=== PATIENT | female | born 1985 | race Caucasian/White ===

== ENCOUNTER 2020-09-11 10:46 | Emergency (ER) | payer OTHER ==
[2020-09-11 11:11] VITALS: BP 140/89; PULSE 89; TEMP 98.6; BMI 26.4
[2020-09-11] MEDS ORDERED: ALBUTEROL SO4 HFA INHALER IH ONE ×2 (12:04→12:22)
[2020-09-11] MEDS ORDERED: ACETAMINOPHEN 325 MG TABLET (FP) PO ONE (13:26)
[2020-09-11] MEDS ORDERED: predniSONE 20 MG TABLET (UD) PO ONE (13:26)
[2020-09-11] MEDS ORDERED: ACETAMINOPHEN 325 MG TABLET (FP) ONE (13:42)
[2020-09-11] MEDS ORDERED: predniSONE 20 MG TABLET (UD) ONE (13:42)
== END 2020-09-11 14:31 | disposition home or self-care (01) ==
LOC: JER 10:46
PROC: 3E0F7GC Introduction of Other Therapeutic Substance into Respiratory Tract, Via Natural or Artificial Opening (ICD-10-PCS; principal; 2020-09-11)
DX: Z11.52 Encounter for screening for COVID-19 (principal)
CPT/HCPCS: 71045-TC-FY; 93005; 93010; 99284-25; C9803; U0003

== ENCOUNTER 2021-01-20 08:58 | Emergency (ER) | payer OTHER ==
[2021-01-20 09:04] VITALS: BP 115/78; PULSE 76; TEMP 98; BMI 27.3
[2021-01-20 11:20] LABS: BASO % 0.7 % (0-2.0); EOS % 3.3 % (0-4.5); HEMATOCRIT 40.1 % (32.4-45.2); HEMOGLOBIN 13.2 GM/dL (10.7-15.3); LYMPH % 29.4 % (8-40); MCH 31.5 pg (25.7-33.7); MEAN CELL VOLUME 95.4 fl (80-96); MEAN PLT VOLUME 9.5 fl (7.5-11.1); MONO % 5.1 % (3.8-10.2); NEUT % 61.5 % (42.8-82.8); PLATELET COUNT 203 10^3/uL (134-434); RBC 4.21 M/mm3 (3.60-5.2); RDW 12.5 % (11.6-15.6); WHITE BLOOD COUNT 10.5 K/mm3 (4.0-10.0)
[2021-01-20 11:37] LABS: CALCIUM 8.7 mg/dL (8.5-10.1)
[2021-01-20 11:38] LABS: BLOOD UREA NITROGEN 13.6 mg/dL (7-18)
[2021-01-20 11:41] LABS: CREATININE 0.6 mg/dL (0.55-1.3)
[2021-01-20 11:46] LABS: HCG,QUALITATIVE URINE Positive
[2021-01-20 11:49] LABS: PH,URINE 5.5 (5.0-8.0); URINE APPEARANCE Clear; URINE BILIRUBIN Negative (NEGATIVE); URINE COLOR Yellow; URINE GLUCOSE (UA) Negative (NEGATIVE); URINE KETONE Trace (NEGATIVE); URINE LEUK ESTERASE Negative (NEGATIVE); URINE NITRITE Negative (NEGATIVE); URINE PROTEIN Negative (NEGATIVE); URINE UROBILINOGEN 0.2 mg/dL (0.2-1.0)
== END 2021-01-20 12:24 | disposition left against medical advice (07) ==
LOC: JER 08:58
DX: Z33.1 Pregnant state, incidental (principal)
CPT/HCPCS: 36415; 76830-TC; 80048; 81003; 84702; 84703; 85025; 87086; 87491; 87591; 99284-25

== ENCOUNTER 2021-02-03 15:57 | Emergency (ER) | payer OTHER ==
[2021-02-03 16:16] VITALS: BP 126/72; PULSE 82; TEMP 98.2; BMI 27.3
[2021-02-03] MEDS ORDERED: ONDANSETRON 4 MG/2 ML VIAL IVPUSH ONE (17:00)
[2021-02-03] MEDS ORDERED: SODIUM CHLORIDE 0.9% 500 ML INFUS.BAG IV ONE ×3 (17:00→18:23)
[2021-02-03] MEDS ORDERED: ONDANSETRON 4 MG/2 ML VIAL ONE (17:36)
[2021-02-03 18:00] LABS: BASO % 0.7 % (0-2.0); EOS % 3.1 % (0-4.5); HEMATOCRIT 39.1 % (32.4-45.2); LYMPH % 23.5 % (8-40); MCH 31.2 pg (25.7-33.7); MCHC 33.3 g/dl (32.0-36.0); MEAN CELL VOLUME 93.7 fl (80-96); MEAN PLT VOLUME 8.7 fl (7.5-11.1); MONO % 5.5 % (3.8-10.2); NEUT % 67.2 % (42.8-82.8); PLATELET COUNT 214 10^3/uL (134-434); RBC 4.17 M/mm3 (3.60-5.2); RDW 12.2 % (11.6-15.6); WHITE BLOOD COUNT 11.8 K/mm3 (4.0-10.0)
[2021-02-03 18:11] LABS: CHLORIDE 104 mmol/L (98-107); SODIUM 131 mmol/L (136-145)
[2021-02-03 18:13] LABS: CALCIUM 8.6 mg/dL (8.5-10.1)
[2021-02-03 18:14] LABS: ALBUMIN 3.3 g/dl (3.4-5.0); CO2 26 mmol/L (21-32); GLUCOSE,RANDOM 96 mg/dL (74-106)
[2021-02-03 18:17] LABS: CREATININE 0.7 mg/dL (0.55-1.3)
[2021-02-03 18:18] LABS: BILIRUBIN,TOTAL 0.1 mg/dL (0.2-1)
[2021-02-03 18:19] LABS: TOT PROT 7.7 g/dl (6.4-8.2)
[2021-02-03 18:20] LABS: ALK PHOS 60 U/L (45-117)
[2021-02-03 18:25] LABS: URINE APPEARANCE TURBID; URINE BILIRUBIN NEGATIVE (NEGATIVE); URINE COLOR DK YELLOW; URINE GLUCOSE (UA) NEGATIVE (NEGATIVE); URINE KETONE NEGATIVE (NEGATIVE)
[2021-02-03 18:26] LABS: PH,URINE 5.5 (5.0-8.0); URINE LEUK ESTERASE 4+ (NEGATIVE); URINE NITRITE NEGATIVE (NEGATIVE); URINE PROTEIN 100 (NEGATIVE)
[2021-02-03 18:28] LABS: ANION GAP 0 MMOL/L (8-16); SGOT/AST 63 U/L (15-37); SGPT/ALT 34 U/L (13-61)
[2021-02-03 19:30] LABS: URINE BACTERIA MANY /hpf (NEGATIVE); URINE WBC 50-100 (NEGATIVE)
== END 2021-02-03 19:10 | disposition left against medical advice (07) ==
LOC: JER 15:57
PROC: 3E033GC Introduction of Other Therapeutic Substance into Peripheral Vein, Percutaneous Approach (ICD-10-PCS; principal; 2021-02-03)
DX: O26.851 Spotting complicating pregnancy, first trimester (principal); Z3A.01 Less than 8 weeks gestation of pregnancy
CPT/HCPCS: 36415; 76817-TC; 80053; 81003; 84702; 85025; 87086; 99284-25

== ENCOUNTER 2022-05-08 04:32 | Day surgery (SDC) | payer OTHER ==
[2022-05-05 11:58] VITALS: BMI 26.6
[2022-05-08] MEDS ORDERED: ceFAZolin SODIUM 1 GM VIAL ONE (10:45)
[2022-05-08] MEDS ORDERED: LIDOCAINE HCL/PF 2% SDV 5ML VIAL ONE (10:45)
[2022-05-08] MEDS ORDERED: KETOROLAC TROMETHAMINE 30 MG/1 ML VIAL ONE (10:45)
[2022-05-08] MEDS ORDERED: SODIUM CHLORIDE 0.9% P/F 10 ML VIAL IJ ONE (10:45)
[2022-05-08] MEDS ORDERED: DEXAMETHASONE SOD PHOSPHATE 4 MG/1 ML VIAL ONE (10:45)
[2022-05-08] MEDS ORDERED: ONDANSETRON 4 MG/2 ML VIAL ONE (10:45)
[2022-05-08] MEDS ORDERED: PROPOFOL 20 ML ONE ×2 (10:46→12:59)
[2022-05-08] MEDS ORDERED: MIDAZOLAM HCL 2 MG/2 ML SINGLE DOSE VIAL ONE (10:47)
[2022-05-08] MEDS ORDERED: KETAMINE HCL 200 MG/20 ML VIAL ONE (11:06)
[2022-05-08] MEDS ORDERED: ROCURONIUM BROMIDE 50 MG/5 ML SYRINGE ONE (11:19)
[2022-05-08] MEDS ORDERED: ONDANSETRON 4 MG/2 ML VIAL IVPUSH PRN (11:33)
[2022-05-08] MEDS ORDERED: oxyCODONE HCL 5 MG TABLET PO PRN (11:33)
[2022-05-08] MEDS ORDERED: LACTATED RINGERS SOLUTION 1,000 ML IV SCH (11:45)
[2022-05-08] MEDS ORDERED: ceFAZolin SODIUM 1 GM VIAL IVPB ONE (11:55)
[2022-05-08] MEDS ORDERED: ACETAMINOPHEN INJECTION 100 ML IVPB ONE (12:03)
[2022-05-08] MEDS ORDERED: oxyCODONE HCL 5 MG TABLET ONE (13:46)
[2022-05-08 14:59] VITALS: RESP 20
[2022-05-08 15:48] VITALS: BP 130/80; PULSE 70; TEMP 98
== END 2022-05-08 15:35 | disposition home or self-care (01) ==
LOC: JASU-SURG 04:32
PROVIDERS: ATTEND Obstetrics & Gynecology
PROC: 0UT54ZZ Resection of Right Fallopian Tube, Percutaneous Endoscopic Approach (ICD-10-PCS; principal; 2022-05-08 12:19)
DX: Z30.2 Encounter for sterilization (principal)
CPT/HCPCS: 81025; 88302-TC; 94760

== ENCOUNTER 2022-05-15 10:18 | Emergency (ER) | payer OTHER ==
[2022-05-15 10:30] VITALS: TEMP 98.1; BMI 27.3
[2022-05-15 13:39] LABS: BASO % 0.6 % (0-2.0); EOS % 6.9 % (0-4.5); HEMATOCRIT 26.2 % (32.4-45.2); HEMOGLOBIN 8.9 GM/dL (10.7-15.3); LYMPH % 29.2 % (8-40); MCH 32.2 pg (25.7-33.7); MCHC 33.8 g/dl (32.0-36.0); MEAN CELL VOLUME 95.1 fl (80-96); MEAN PLT VOLUME 8.3 fl (7.5-11.1); MONO % 8.4 % (3.8-10.2); NEUT % 54.9 % (42.8-82.8); PLATELET COUNT 220 10^3/uL (134-434); RBC 2.75 M/mm3 (3.60-5.2); RDW 13.1 % (11.6-15.6); WHITE BLOOD COUNT 7.2 K/mm3 (4.0-10.0)
[2022-05-15 13:51] LABS: ACTIVATED PTT 26.3 SECONDS (25.2-36.5); INR 0.94 (0.83-1.09); PROTHROMBIN TIME (PATIENT) 10.8 SEC (9.7-13.0)
[2022-05-15 13:53] LABS: PH,URINE 5.5 (5.0-8.0); URINE APPEARANCE CLEAR; URINE BILIRUBIN NEGATIVE (NEGATIVE); URINE COLOR YELLOW; URINE GLUCOSE (UA) NEGATIVE (NEGATIVE); URINE KETONE TRACE (NEGATIVE); URINE LEUK ESTERASE NEGATIVE (NEGATIVE); URINE NITRITE NEGATIVE (NEGATIVE); URINE PROTEIN NEGATIVE (NEGATIVE)
[2022-05-15 14:10] LABS: CALCIUM 8.4 mg/dL (8.5-10.1)
[2022-05-15 14:11] LABS: ALBUMIN 3.3 g/dl (3.4-5.0); BLOOD UREA NITROGEN 10.2 mg/dL (7-18)
[2022-05-15 14:14] LABS: CREATININE 0.6 mg/dL (0.55-1.3)
[2022-05-15 14:15] LABS: BILIRUBIN,TOTAL 0.4 mg/dL (0.2-1); TOT PROT 6.3 g/dl (6.4-8.2)
[2022-05-15] MEDS ORDERED: AMOX TR/POT CLAV 500MG/125MG TABLETS (FP) PO ONE (14:20)
[2022-05-15] MEDS ORDERED: AMOX TR/POT CLAV 500MG/125MG TABLETS (FP) ONE (15:04)
[2022-05-15 19:20] VITALS: BP 120/79; PULSE 79; RESP 20
== END 2022-05-15 16:45 | disposition home or self-care (01) ==
LOC: JER 10:18
DX: R10.9 Unspecified abdominal pain (principal)
CPT/HCPCS: 36415; 76705-TC; 76830-TC; 76856-TC; 80053; 81003; 85025; 85610; 85730; 87086; 99284-25

== ENCOUNTER 2022-05-17 12:08 | Emergency (ER) | payer OTHER ==
[2022-05-17 12:24] VITALS: BP 132/84; PULSE 81; RESP 19; TEMP 98.6; BMI 27.1
[2022-05-17] MEDS ORDERED: ACETAMINOPHEN 1000 MG/100 ML BAG IVPB ONE (13:03)
[2022-05-17] MEDS ORDERED: ACETAMINOPHEN INJECTION 100 ML IVPB ONE (13:08)
[2022-05-17 14:12] LABS: BASO % 0.6 % (0-2.0); EOS % 6.1 % (0-4.5); HEMATOCRIT 29.3 % (32.4-45.2); HEMOGLOBIN 9.6 GM/dL (10.7-15.3); LYMPH % 23.7 % (8-40); MCHC 32.8 g/dl (32.0-36.0); MEAN CELL VOLUME 97.5 fl (80-96); MEAN PLT VOLUME 8.4 fl (7.5-11.1); MONO % 6.9 % (3.8-10.2); NEUT % 62.7 % (42.8-82.8); PLATELET COUNT 268 10^3/uL (134-434); RBC 3.01 M/mm3 (3.60-5.2); RDW 13.6 % (11.6-15.6); WHITE BLOOD COUNT 8.9 K/mm3 (4.0-10.0)
[2022-05-17 14:19] LABS: INR 0.96 (0.83-1.09)
[2022-05-17 14:22] LABS: ACTIVATED PTT 26.2 SECONDS (25.2-36.5)
[2022-05-17 14:31] LABS: ALBUMIN 3.5 g/dl (3.4-5.0); BLOOD UREA NITROGEN 9.6 mg/dL (7-18); CALCIUM 8.8 mg/dL (8.5-10.1)
[2022-05-17 14:32] LABS: EPI CELLS 23 /uL (0-25.1); HYALINE CASTS 2 /uL (0-3.1); URINE APPEARANCE CLEAR; URINE BACTERIA 12 /uL (0-1359); URINE BILIRUBIN NEGATIVE (NEGATIVE); URINE COLOR YELLOW; URINE GLUCOSE (UA) NEGATIVE (NEGATIVE); URINE KETONE TRACE (NEGATIVE); URINE LEUK ESTERASE NEGATIVE (NEGATIVE); URINE NITRITE NEGATIVE (NEGATIVE); URINE PROTEIN 1+ (NEGATIVE); URINE RBC 72 /uL (0-23.9); URINE WBC 9 /uL (0-25.8)
[2022-05-17 14:34] LABS: CREATININE 0.6 mg/dL (0.55-1.3)
[2022-05-17 14:36] LABS: BILIRUBIN,TOTAL 0.6 mg/dL (0.2-1); TOT PROT 6.6 g/dl (6.4-8.2)
[2022-05-17 14:59] LABS: HCG,QUALITATIVE URINE Negative
== END 2022-05-17 15:40 | disposition home or self-care (01) ==
LOC: JER 12:08
DX: R10.84 Generalized abdominal pain (principal); N93.9 Abnormal uterine and vaginal bleeding, unspecified
CPT/HCPCS: 36415; 76830-TC; 80053; 81003; 84703; 85025; 85610; 85730; 86850; 86900; 86901; 87086; 99284-25; C9803-CS; U0003; U0005

== ENCOUNTER 2023-08-09 10:49 | Emergency (ER) | payer OTHER ==
[2023-08-09 11:07] VITALS: BP 124/67; PULSE 77; RESP 18; TEMP 97.7; BMI 29.0
[2023-08-09] MEDS ORDERED: IBUPROFEN 400 MG TABLET (FP) PO ONE ×2 (11:49→11:55)
[2023-08-09] MEDS ORDERED: LIDOCAINE 5% TOPICAL PATCH TP ONE ×2 (11:49)
[2023-08-09] MEDS ORDERED: LIDOCAINE 4% PATCH TP ONE (11:55)
[2023-08-09 12:12] LABS: EPI CELLS 24 /uL (0-25.1); HYALINE CASTS 0 /uL (0-3.1); PH,URINE 5.5 (5.0-8.0); URINE APPEARANCE CLEAR; URINE BACTERIA 260 /uL (0-1359); URINE BILIRUBIN NEGATIVE (NEGATIVE); URINE COLOR YELLOW; URINE GLUCOSE (UA) NEGATIVE (NEGATIVE); URINE KETONE NEGATIVE (NEGATIVE); URINE LEUK ESTERASE NEGATIVE (NEGATIVE); URINE NITRITE NEGATIVE (NEGATIVE); URINE PROTEIN NEGATIVE (NEGATIVE); URINE RBC 16 /uL (0-23.9); URINE UROBILINOGEN 0.2 mg/dL (0.2-1.0); URINE WBC 3 /uL (0-25.8)
[2023-08-09] MEDS ORDERED: LIDOCAINE PATCH REMOVAL MC SCH (22:00)
[2023-08-09] MEDS ORDERED: LIDOCAINE PATCH REMOVAL MC ONE (22:00)
== END 2023-08-09 13:06 | disposition home or self-care (01) ==
LOC: JER 10:49
DX: M54.9 Dorsalgia, unspecified (principal); N39.0 Urinary tract infection, site not specified
CPT/HCPCS: 81003; 87086; 87186; 99283-25